=== PATIENT | male | born 1975 | race Caucasian/White ===

== ENCOUNTER 2020-10-13 21:03 | Emergency (ER) | payer OTHER ==
[~2020-10-13] VITALS: Ht 185.4 cm; Wt 100.0 kg
[2020-10-13] MEDS ORDERED: ketorolac trometh inj. 60 MG/2 ML VIAL IM ONE (23:20)
[2020-10-13 23:31] VITALS: BP 176/78
== END 2020-10-13 23:33 | disposition home or self-care (01) ==
LOC: ER 21:04
DX: M25.511 Pain in right shoulder (principal); G89.29 Other chronic pain; Z02.89 Encounter for other administrative examinations; V87.7XXA Person injured in collision between other specified motor vehicles (traffic), initial encounter; Y93.89 Activity, other specified; Y92.89 Other specified places as the place of occurrence of the external cause; Y99.8 Other external cause status
CPT/HCPCS: 96372; 99283; J1885